=== PATIENT | female | born 1950 | race Two or more races ===

== ENCOUNTER 2018-08-13 16:10 | Outpatient (CLI) | payer OTHER | END 2018-08-13 16:18 | disposition home or self-care (01) | LOC: RAD 16:10 | DX: M19.041 Primary osteoarthritis, right hand (principal); M19.042 Primary osteoarthritis, left hand ==

== ENCOUNTER 2019-01-12 11:15 | Outpatient (CLI) | payer OTHER | END 2019-01-12 12:54 | disposition home or self-care (01) | LOC: SONOGRAMA 11:15 → MAMO-SONO 11:15 → SONOGRAMA 12:54 | DX: M65.331 Trigger finger, right middle finger (principal) ==